=== PATIENT | male | born 1975 | race African-American/Black ===

== ENCOUNTER 2016-07-01 19:59 | Emergency (ER) | payer MEDICAID ==
[2016-07-01] MEDS ORDERED: ONDANSETRON 4 MG TAB.RAPDIS PO ONE (20:16)
--- NOTE | 2016-07-01 20:16 | ER Document Report ---
ED Medical Screen (RME) - General Chief Complaint: Abdominal Pain Stated Complaint: ABDOMINAL PAIN Time seen by provider: 20:13 Mode of Arrival: Ambulatory Information source: Patient Notes: 41-year-old male presents to ED for abdominal pain with vomiting of something that looked black this morning and again about 3 hours later. Went to [facility] around 5:00 they did not examine him because they stated he needed blood work. States now he has a sore throat pain in the right upper abdomen and feels like he is is going to throw up when he lays on his right side and the pain is worse. Pain is improved when laying on the left side. States she's had chills all day. Denies fever I have greeted and performed a rapid initial assessment of this patient. A comprehensive ED assessment and evaluation of the patient, analysis of test results and completion of medical decision making process will be conducted by an additional ED providers.
[2016-07-01 22:13] LABS: ABSOLUTE LYMPHOCYTES (AUTO) 2.1 10^3/uL (0.5-4.7); ABSOLUTE NEUT (AUTO) 6.5 10^3/uL (1.7-8.2); BASOPHILS % (AUTO) 0.5 % (0-2); EOSINOPHILS % (AUTO) 0.5 % (0-6); HEMATOCRIT 47.6 % (37.9-51.0); HEMOGLOBIN 15.7 g/dL (13.5-17.0); HGB HCT DIFFERENCE -0.5; LYMPHOCYTES % (AUTO) 22.1 % (13-45); MEAN CORPUSCULAR HEMOGLOBIN 28.8 pg (27.0-33.4); MEAN CORPUSCULAR HGB CONC 32.9 g/dL (32.0-36.0); MEAN CORPUSCULAR VOLUME 88 fl (80-97); MONOCYTES % (AUTO) 10.2 % (3-13); RED BLOOD COUNT 5.43 10^6/uL (4.35-5.55); RED CELL DISTRIBUTION WIDTH 14.1 % (11.5-14.0); SEGMENTED NEUTROPHILS % (AUTO) 66.7 % (42-78); WHITE BLOOD COUNT 9.7 10^3/uL (4.0-10.5)
[2016-07-01 22:27] LABS: ALANINE AMINOTRANSFERASE 49 U/L (21-72); ALBUMIN 5.1 g/dL (3.5-5.0); ALKALINE PHOSPHATASE 49 U/L (38-126); ANION GAP 13 (5-19); ASPARTATE AMINO TRANSFERASE 27 U/L (17-59); BLOOD UREA NITROGEN 13 mg/dL (7-20); CALCIUM 10.4 mg/dL (8.4-10.2); CARBON DIOXIDE 31 mmol/L (22-30); CHLORIDE 100 mmol/L (98-107); CREATININE RESULT 1.03 mg/dL (0.52-1.25); GLUCOSE 132 mg/dL (75-110); LIPASE 30.1 U/L (23-300); POTASSIUM 3.9 mmol/L (3.6-5.0); SODIUM 143.6 mmol/L (137-145)
[2016-07-01 22:30] LABS: APPEARANCE,URINE SLIGHTLY-CLOUDY; BILIRUBIN,URINE NEGATIVE (NEGATIVE); GLUCOSE, URINE NEGATIVE (NEGATIVE); KETONES,URINE TRACE mg/dL (NEGATIVE); LEUKOCYTE ESTERASE,URINE NEGATIVE (NEGATIVE); NITRITE,URINE NEGATIVE (NEGATIVE); PROTEIN,URINE 100 mg/dL (NEGATIVE); URINE SPECIFIC GRAVITY 1.033; UROBILINOGEN,URINE NEGATIVE mg/dL (<2.0)
[2016-07-02] MEDS ORDERED: ONDANSETRON ODT 4 MG TAB (6 TAB/DSPK) PO PRN (01:58)
[2016-07-02] MEDS ORDERED: MAG HYDROX/AL HYDROX/SIMETH SUSP 30 ML UDCUP PO ONE (01:58)
[2016-07-02] MEDS ORDERED: FAMOTIDINE 20 MG TABLET PO ONE (01:58)
[2016-07-02] MEDS ORDERED: SUCRALFATE 1 GM TABLET PO ONE (01:58)
--- NOTE | 2016-07-02 02:00 | ER Document Report ---
ED GI/ - General Chief Complaint: Abdominal Pain Stated Complaint: ABDOMINAL PAIN Time seen by provider: 01:50 Mode of Arrival: Ambulatory Notes: Patient is a 41 year old male that comes to the ED for chief complaint of vomiting and diarrhea. Patient states he vomited twice, he states that it appeared dark and he was worried it had blood, he states his bowel movements also seemed dark in color. He denies that they were black, denies that there were bloody, denies fever, states he had chills this morning. Patient states that after he was given Zofran in triage he ate chicken noodle soup and did not vomit, states he feels a lot better except he feels a persistent "burning in the stomach and esophagus". Patient denies any daily medications, states that about a day and a half ago he was drinking alcohol, drinks irregularly. Denies any surgeries. TRAVEL OUTSIDE OF THE [place] IN LAST 30 DAYS: No Past Medical History - General Information source: Patient - Social History Smoking Status: Never Smoker Drug Abuse: Marijuana - Former marijuana smoker, states he does not anymore Lives with: Family Family History: Reviewed & Not Pertinent Patient has suicidal ideation: No Patient has homicidal ideation: No - Medical History Medical History: Negative Renal/ Medical History: Denies: Hx Peritoneal Dialysis Surgical Hx: Negative - Immunizations Immunizations up to date: Yes Hx Diphtheria, Pertussis, Tetanus Vaccination: Yes Review of Systems - Review of Systems Constitutional: No symptoms reported EENT: No symptoms reported Cardiovascular: No symptoms reported Respiratory: No symptoms reported Gastrointestinal: See HPI Genitourinary: No symptoms reported Male Genitourinary: No symptoms reported Musculoskeletal: No symptoms reported Skin: No symptoms reported Hematologic/Lymphatic: No symptoms reported Neurological/Psychological: No symptoms reported Physical Exam - Vital signs Interpretation: Normal - General General appearance: Appears well, Alert In distress: None - HEENT Head: Normocephalic, Atraumatic Eyes: Normal Pupils: PERRL - Respiratory Respiratory status: No respiratory distress Chest status: Nontender Breath sounds: Normal Chest palpation: Normal - Cardiovascular Rhythm: Regular Heart sounds: Normal auscultation Murmur: No - Abdominal Inspection: Normal Distension: No distension Bowel sounds: Normal Tenderness: Tender - unremarkable abdominal exam with only very mild generalized tenderness, no guarding, non-specific Organomegaly: No organomegaly - Back Back: Normal, Nontender - Extremities General upper extremity: Normal inspection, Nontender, Normal color, Normal ROM , Normal temperature General lower extremity: Normal inspection, Nontender, Normal color, Normal ROM , Normal temperature, Normal weight bearing. No: Quynh's sign - Neurological Neuro grossly intact: Yes Cognition: Normal Orientation: AAOx4 [place] Coma Scale Eye Opening: Spontaneous [place] Coma Scale Verbal: Oriented [place] Coma Scale Motor: Obeys Commands [place] Coma Scale Total: 15 Speech: Normal Motor strength normal: LUE, RUE, LLE, RLE Sensory: Normal - Psychological Associated symptoms: Normal affect, Normal mood - Skin Skin Temperature: Warm Skin Moisture: Dry Skin Color: Normal Course - Re-evaluation Re-evalutation: Patient amended his statement, stating he had darkish-looking vomit and stools but denies any blood or black stools. Patient refuses a rectal exam. Patient states he feels much better except for the burning in his upper abdomen and esophagus. Patient declines any additional workup. CBC, chemistry, urinalysis generally unremarkable, suggest dehydration but no other acute abnormalities. Patient's abdominal exam is not concerning. Patient will be started on omeprazole, Carafate, discussed follow-up recommendations and return precautions. Patient states understanding and agreement. - Laboratory Result Diagrams: 07/01/16 22:05 07/01/16 22:05 Laboratory results interpreted by me: 07/01/16 07/01/16 07/01/16 22:05 22:05 22:07 RDW 14.1 H Carbon Dioxide 31 H Glucose 132 H Calcium 10.4 H Albumin 5.1 H Urine Protein 100 H Urine Ketones TRACE H Discharge - Discharge Clinical Impression: Vomiting and diarrhea, Upper abdominal pain Condition: Stable Disposition: HOME, SELF-CARE Additional Instructions: Your symptoms and examination are consistent with gastritis and possible esophagitis. Your laboratory workup is unremarkable. Take the Carafate and omeprazole as directed daily, take Tums and Rolaids additionally if needed, avoid alcohol, caffeine, NSAIDs, spicy food. Follow-up with primary care. Return to emergency department for any concerning or worsening symptoms including severe abdominal pain, vomiting blood, black stools, etc. Prescriptions: Omeprazole 40 mg PO DAILY #30 capsule.dr Montalvo [Carafate 1 gm Tablet] 1 gm PO QID #40 tablet Referrals: REBECA FREY MD [Primary Care Provider] - Follow up as needed
== END 2016-07-02 02:46 | disposition home or self-care (01) ==
LOC: ER 19:59
DX: R11.10 Vomiting, unspecified (principal); R19.7 Diarrhea, unspecified; R10.10 Upper abdominal pain, unspecified
CPT/HCPCS: 99284; 36415; 83690; 85025; 80053; 81001; J3490 ×3; S0119